=== PATIENT | female | born 1975 | race Caucasian/White ===

== ENCOUNTER → 2016-11-13 | Outpatient (CLI) | payer MEDICARE | END | disposition home or self-care (01) | LOC: LAB.O 15:34 | PROVIDERS: ATTEND Nurse Practitioner Family | DX: N30.00 Acute cystitis without hematuria (principal) ==

== ENCOUNTER 2016-12-15 23:07 | Emergency (ER) | payer MEDICARE ==
[2016-12-15 23:24] VITALS: BP 116/75; TEMP 96.7; O2SAT 99
[2016-12-15] MEDS ORDERED: SULFA/TRIMETH 800/160 (DS) TAB 1 EA TAB PO ONE (23:25)
--- NOTE | 2016-12-15 23:28 | ED.PDOC ---
History of Present Illness - General Chief Complaint: Laceration Stated Complaint: scraped rt heel Time Seen by Provider: 12/15/16 23:18 Source: patient Exam Limitations: no limitations - History of Present Illness Initial Comments: he patient is a 41-year-old female presenting to emergency room secondary to pain on the heel of her right foot. 2-3 days ago she stepped on something and sustained a 1.5 x 0.5 cm laceration to the lateral aspect of her right heel. She is a diabetic and does have diabetic neuropathy. Pain has been increasing. No other injuries. She reports fair blood sugar control. Severity: mild Improving Factors: nothing Worsening Factors: nothing Associated Symptoms: denies symptoms Allergies/Adverse Reactions: Allergies Vancomycin Allergy (Unverified 05/01/12 22:24) Home Medications: Ambulatory Orders Gabapentin 05/17/15 Glipizide 05/17/15 Depakote 12/15/16 Haldol 12/15/16 Invokana 12/15/16 Metformin HCl 12/15/16 Sulfa/Trimeth 800/160 (Ds) Tab [Bactrim DS Tab] 1 ea PO BID #6 tab 12/15/16 Zanaflex 12/15/16 Review of Systems - Review of Systems Constitutional: States: no symptoms reported EENTM: States: no symptoms reported Respiratory: States: no symptoms reported Cardiology: States: no symptoms reported Gastrointestinal/Abdominal: States: no symptoms reported Genitourinary: States: no symptoms reported Musculoskeletal: States: see HPI Skin: States: see HPI Neurological: States: no symptoms reported Endocrine: States: no symptoms reported Hematologic/Lymphatic: States: no symptoms reported All other Systems: No Change from Baseline Past Medical History (General) - Patient Medical History Hx Congestive Heart Failure: No Hx Hypertension: Yes Hx Diabetes: Yes - Vaccination History Hx Tetanus, Diphtheria Vaccination: - unsure Hx Influenza Vaccination: No Hx Pneumococcal Vaccination: No - Social History Hx Alcohol Use: Yes - Female History Patient is a Female of Child Bearing Age (10 -59 yrs old): No Patient : No Family Medical History - Family History Mother Family History: No Known Physical Exam - Physical Exam General Appearance: Alert, Comfortable, No apparent distress Eye Exam: bilateral normal Ears, Nose, Throat: hearing grossly normal Neck: non-tender, full range of motion Respiratory: no respiratory distress, no accessory muscle use Cardiovascular/Chest: normal peripheral pulses, no edema Peripheral Pulses: radial,right: 2+, radial,left: 2+, dorsalis pedis,right: 2+, dorsalis pedis,left: 2+, posterior tibialis,right: 2+, posterior tibialis,left: 2+ Rectal Exam: deferred Extremity: normal range of motion, no pedal edema, no calf tenderness, normal capillary refill Neurologic: tube roller II-XII nml as tested, alert, normal mood/affect, oriented x 3 Skin Exam: normal color - laceration as above. Comments: Vital Signs - 24 hr 12/15/16 23:22 Temperature 96.7 F L Pulse Rate [ 98 H Left] Respiratory 16 Rate Blood Pressure 116/75 [Right Arm] O2 Sat by Pulse 99 Oximetry Progress - Progress Progress: 12/15/16 23:27 the patient is a 41-year-old female that is diabetic with mild peripheral neuropathy presenting secondary to a laceration to her right heel. The laceration is fairly superficial. It was cleaned with alcohol. It was covered with antibiotic ointment and a Band-Aid. She can continue this treatment at home. The patient will also be put on 3 days of Bactrim for prophylactic purposes. ER warnings were given for any worsening. Departure - Departure Clinical Impression: Laceration of foot not toes Qualifiers: Encounter type: initial encounter Laterality: right Qualified Code(s): S91.311A - Laceration without foreign body, right foot, initial encounter Disposition: Discharge to Home or Self Care Condition: Fair Departure Forms: ED Discharge - Pt. Copy, Patient Portal Self Enrollment Instructions: DI for Laceration Repair -- Simple Diet: regular diet Activity: increase activity as tolerated Referrals: KENNA GONZALES IV, FNP [Primary Care Provider] - 1-2 Weeks Prescriptions: Sulfa/Trimeth 800/160 (Ds) Tab [Bactrim DS Tab] 1 ea PO BID #6 tab Home Medications: Ambulatory Orders Gabapentin 05/17/15 Glipizide 05/17/15 Depakote 12/15/16 Haldol 12/15/16 Invokana 12/15/16 Metformin HCl 12/15/16 Sulfa/Trimeth 800/160 (Ds) Tab [Bactrim DS Tab] 1 ea PO BID #6 tab 12/15/16 Zanaflex 12/15/16 Additional Instructions: the patient is a 41-year-old female that is diabetic with mild peripheral neuropathy presenting secondary to a laceration to her right heel. The laceration is fairly superficial. It was cleaned with alcohol. It was covered with antibiotic ointment and a Band-Aid. She can continue this treatment at home. The patient will also be put on 3 days of Bactrim for prophylactic purposes. ER warnings were given for any worsening.
[2016-12-15] MEDS ORDERED: NEOMYCIN-BACITRACIN-POLYMYXIN 0.9 GM UD TOP ONE (23:29)
== END 2016-12-15 23:39 | disposition home or self-care (01) ==
LOC: ER 23:07
DX: S91.311A Laceration without foreign body, right foot, initial encounter (principal); I10 Essential (primary) hypertension; E11.9 Type 2 diabetes mellitus without complications; Z88.3 Allergy status to other anti-infective agents; W22.8XXA Striking against or struck by other objects, initial encounter; Y92.9 Unspecified place or not applicable

== ENCOUNTER → 2017-01-01 | Outpatient (CLI) | payer MEDICARE | END | disposition home or self-care (01) | LOC: LAB.O 15:31 | PROVIDERS: ATTEND Psychiatry & Neurology Psychiatry | DX: F31.9 Bipolar disorder, unspecified (principal); Z79.899 Other long term (current) drug therapy ==

== ENCOUNTER 2017-07-31 13:28 | Emergency (ER) | payer MEDICARE ==
[2017-07-31 14:04] VITALS: TEMP 98.5
--- NOTE | 2017-07-31 14:34 | CT ---
EXAM DESCRIPTION: Head CLINICAL HISTORY: fall COMPARISON: None available TECHNIQUE: Noncontrast head CT was performed with routine protocol. FINDINGS: Normal anderson-white matter differentiation. Ventricles and sulci are normal for age. No high density hemorrhage, focal edema or shift of the midline. No sulcal effacement. Normal orbital contents. Basilar cisterns appear clear. Intact calvarium with no fracture or lytic lesion. Normal aeration of tympanic cavities and mastoid air cells. No fluid levels in the paranasal sinuses. Skull base appears intact. Symmetrical internal auditory canals. IMPRESSION: No acute intracranial pathologic process. This exam was performed according to our departmental dose-optimization program, which includes automated exposure control, adjustment of the mA and/or kV according to patient size and/or use of iterative reconstruction technique. Total DLP equals 752.48 mGycm. Electronically signed by: Anthony Monge MD 07/31/2017 2:32 PM CDT
--- NOTE | 2017-07-31 14:38 | CT ---
EXAM DESCRIPTION: Cervical Spine CLINICAL HISTORY: fall COMPARISON: None Available. TECHNIQUE: Cervical CT is performed with thin-section axial imaging. MPRs are created and reviewed as well. FINDINGS: Axial bone window images reveal intact ring of C1. No abnormal widening of the atlantodens interval. No fracture of the vertebral bodies or transverse processes or posterior elements. Lung apices appear clear. No cervical mass or adenopathy. Sagittal reformatted images show normal alignment of vertebral bodies and facets. No jumped facet or facet fracture. Normal craniocervical alignment. No prevertebral soft tissue swelling. No a avulsion of the spinous processes. Spondylosis: Status post C4-5 anterior cervical interbody fusion. The fused disc level, prominent bony ridge measures approximately 4 mm in AP dimension without significant spinal stenosis. No other spondylotic changes. Coronal reformatted images show normal atlantooccipital and atlantoaxial alignment. The base of the dens is intact as is the body of C2. Intact lateral masses. Minimal patchy fluid opacification of the inferior mastoid air cells. IMPRESSION: Negative for fracture or posttraumatic subluxation. This exam was performed according to our departmental dose-optimization program, which includes automated exposure control, adjustment of the mA and/or kV according to patient size and/or use of iterative reconstruction technique. Total DLP equals 453.32 mGycm. Electronically signed by: Anthony Monge MD 07/31/2017 2:35 PM CDT
[2017-07-31] MEDS ORDERED: KETOROLAC TROMETHAMINE INJ 60 MG/2 ML VIAL IM ONE (14:58)
[2017-07-31] MEDS ORDERED: PROMETHAZINE HCL INJ 25 MG/ML VIAL IM ONE (14:58)
--- NOTE | 2017-07-31 15:04 | ED.PDOC ---
History of Present Illness - General Chief Complaint: Neuro Symptoms/Deficits Stated Complaint: headache post fall Time Seen by Provider: 07/31/17 14:57 Source: patient Exam Limitations: no limitations - History of Present Illness Initial Comments: PT REPORTS SLIIPPING AND FALLING IN THE KITCHEN YESTERDAY, HITTING HER HEAD ON A WALL. PT BELIEVES THAT SHE LOST CONCIOUSNESS AND REPORTS SEVERE HEADACHE AND NAUSEA TODAY, UNRELIEVED BY BC POWDER THAT SHE TOOK THIS AM. Timing/Duration: constant Severity: severe Improving Factors: nothing Worsening Factors: nothing Associated Symptoms: nausea/vomiting Allergies/Adverse Reactions: Allergies Vancomycin Allergy (Unverified 05/01/12 22:24) Home Medications: Ambulatory Orders Gabapentin 05/17/15 Glipizide 05/17/15 Depakote 12/15/16 Haldol 12/15/16 Invokana 12/15/16 Metformin HCl 12/15/16 Sulfa/Trimeth 800/160 (Ds) Tab [Bactrim DS Tab] 1 ea PO BID #6 tab 12/15/16 Zanaflex 12/15/16 Itgjgggixfbxi-Eomz-Wxkytpnlvn [Fioricet] 1 - 2 ea PO Q6HR PRN #20 tab 07/31/17 Ibuprofen 800 mg PO Q8HR PRN #30 tab 07/31/17 Promethazine Tab [Phenergan Tablet] 25 mg PO Q6H PRN #15 tab 07/31/17 Review of Systems - Review of Systems Constitutional: Denies: chills, fever EENTM: Denies: ear pain, nose congestion, throat pain Respiratory: Denies: cough, short of breath Cardiology: Denies: chest pain, palpitations, syncope Gastrointestinal/Abdominal: States: nausea. Denies: diarrhea, vomiting Genitourinary: Denies: dysuria, frequency Musculoskeletal: States: see HPI, neck pain. Denies: joint pain, joint swelling , muscle pain Skin: Denies: dryness, lesions Neurological: States: see HPI, headache. Denies: paresthesia Endocrine: States: no symptoms reported Hematologic/Lymphatic: States: no symptoms reported Past Medical History (General) - Patient Medical History Hx Congestive Heart Failure: No Hx Hypertension: Yes Hx Diabetes: Yes Surgical History: Hysterectomy, other - Vaccination History Hx Tetanus, Diphtheria Vaccination: - unsure Hx Influenza Vaccination: No Hx Pneumococcal Vaccination: No - Social History Hx Alcohol Use: Yes - Female History Patient : No Family Medical History - Family History Mother Family History: No Known Physical Exam - Physical Exam General Appearance: Alert, Well Developed, Well Groomed, Well Hydrated, Other - APPEARS UNCOMFORTABLY Eye Exam: bilateral normal ENT Exam: normal ENT inspection, hearing grossly normal Neck: full range of motion, supple, tender lateral, tender midline 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 Copy, Patient Portal Self Enrollment Instructions: DI for Concussion Diet: resume usual diet Activity: increase activity as tolerated Referrals: CALVIN SHEPARD,DEANNA Raza [Primary Care Provider] - 1-2 Weeks Prescriptions: Ibknohvrxsspm-Qpal-Zlfsaldnrx [Fioricet] 1 - 2 ea PO Q6HR PRN #20 tab PRN Reason: Headache/Migraine Pain Ibuprofen 800 mg PO Q8HR PRN #30 tab PRN Reason: Pain Promethazine Tab [Phenergan Tablet] 25 mg PO Q6H PRN #15 tab PRN Reason: Nausea/Vomiting Home Medications: Ambulatory Orders Gabapentin 05/17/15 Glipizide 05/17/15 Depakote 12/15/16 Haldol 12/15/16 Invokana 12/15/16 Metformin HCl 12/15/16 Sulfa/Trimeth 800/160 (Ds) Tab [Bactrim DS Tab] 1 ea PO BID #6 tab 12/15/16 Zanaflex 12/15/16 Ztginyvyvygos-Uvel-Sgjriilpwh [Fioricet] 1 - 2 ea PO Q6HR PRN #20 tab 07/31/17 Ibuprofen 800 mg PO Q8HR PRN #30 tab 07/31/17 Promethazine Tab [Phenergan Tablet] 25 mg PO Q6H PRN #15 tab 07/31/17
[2017-07-31] MEDS ORDERED: ACETAMINOPHEN-CAFF-BUTALBITAL 1 EA TAB PO PRN (15:53)
[2017-07-31 16:28] VITALS: BP 137/74; O2SAT 100
== END 2017-07-31 16:28 | disposition home or self-care (01) ==
LOC: ER 13:28
DX: S16.1XXA Strain of muscle, fascia and tendon at neck level, initial encounter (principal); S06.0X9A Concussion with loss of consciousness of unspecified duration, initial encounter; R11.0 Nausea; I10 Essential (primary) hypertension; W01.198A Fall on same level from slipping, tripping and stumbling with subsequent striking against other object, initial encounter; Y92.000 Kitchen of unspecified non-institutional (private) residence as the place of occurrence of the external cause
CPT/HCPCS: 70450; 72125; J1885; J2550

== ENCOUNTER 2017-11-23 20:33 | Emergency (ER) | payer MEDICARE ==
[2017-11-23] MEDS ORDERED: PANTOPRAZOLE SODIUM IV 40 MG VIAL IV ONE (21:04)
[2017-11-23] MEDS ORDERED: METOCLOPRAMIDE HCL INJ 10 MG/2 ML VIAL IV ONE (21:04)
[2017-11-23] MEDS ORDERED: HALOPERIDOL LACTATE INJ 5 MG/ML VIAL IM ONE (21:04)
--- NOTE | 2017-11-23 21:07 | ED.PDOC ---
History of Present Illness - General Chief Complaint: GI Problem Stated Complaint: N/V/D Time Seen by Provider: 11/23/17 21:02 Information Source: patient Exam Limitations: no limitations - History of Present Illness Initial Comments: SHE STARTED TRULICITY SATURDAY AND SINCE THEN SHE HAS BEEN NAUSEATED AND VOMITING. ALSO C/O ABDOMINAL PAIN . SHE DENIES ANY DIARRHEA. SHE ALSO HAS A MIGRAINE HA7/10, [employer]. Abdominal Pain Onset Location: epigastric Pain Radiation: no radiation Quality: moderate Timing/Duration: days - FOUR DAYS AGO Improving Factors: nothing Worsening Factors: nothing Review of Systems - Review of Systems Constitutional: States: no symptoms reported EENTM: States: no symptoms reported Respiratory: States: no symptoms reported Cardiology: States: no symptoms reported Gastrointestinal/Abdominal: States: abdominal pain, vomiting Genitourinary: States: no symptoms reported Musculoskeletal: States: no symptoms reported Skin: States: no symptoms reported Neurological: States: no symptoms reported, headache Endocrine: States: no symptoms reported Hematologic/Lymphatic: States: no symptoms reported Past Medical History (General) - Patient Medical History Hx Seizures: No Hx Stroke: No Hx Dementia: No Hx Asthma: No Hx of COPD: No Hx Cardiac Disorders: No Hx Congestive Heart Failure: No Hx Pacemaker: No Hx Hypertension: Yes Hx Thyroid Disease: No Hx Diabetes: Yes Hx Gastroesophageal Reflux: No Hx Renal Disease: No Hx Cancer: No Hx of HIV: No Hx Hepatitis C: No Hx MRSA: No Surgical History: Hysterectomy - Vaccination History Hx Tetanus, Diphtheria Vaccination: Yes Hx Influenza Vaccination: No Hx Pneumococcal Vaccination: No - Social History Hx Alcohol Use: Yes - occasional - Female History Patient : No Family Medical History - Family History Mother Family History: No Known Physical Exam - Physical Exam General Appearance: Well Developed, Well Groomed, Well Hydrated, Well Nourished , Other - SHE IS IN MODERATESS Eyes, Ears, Nose, Throat Exam: PERRL/EOMI, pharynx normal Neck: non-tender, supple Respiratory: chest non-tender, lungs clear, normal breath sounds, no respiratory distress, no accessory muscle use Cardiovascular/Chest: normal peripheral pulses, regular rate, rhythm, no edema, no gallop, no JVD, no murmur Peripheral Pulses: No deficit Gastrointestinal/Abdominal: normal bowel sounds, soft, tenderness Rectal Exam: deferred Extremity: normal range of motion, non-tender Neurologic: oriented x 3 Skin Exam: normal color Progress - Progress Progress: 11/23/17 22:01 FEELS MUCH BETTER, LAB IS REPORTED. PROBABLY THIS VOMITING IS A SIDE EFFECT FROM TRULICITY. HER HEADACHE IS ALSO MUCH BETTER. 11/23/17 22:02 11/23/17 22:03 Departure - Departure Clinical Impression: Vomiting Qualifiers: Vomiting type: bilious vomiting Nausea presence: with nausea Qualified Code(s) : R11.14 - Bilious vomiting Time of Disposition: 22:04 Disposition: Discharge to Home or Self Care Condition: Good Departure Forms: ED Discharge - Pt. Copy, Patient Portal Self Enrollment Instructions: Nausea and Vomiting, Adult (DC) Referrals: CALVIN SHEPARD,DEANNA Raza [Primary Care Provider] - 1-2 Weeks Prescriptions: Metoclopramide Tab [Reglan Tab] 10 mg PO Q6HR #30 tab Home Medications: Ambulatory Orders Gabapentin 05/17/15 Glipizide 05/17/15 Depakote 12/15/16 Haldol 12/15/16 Invokana 12/15/16 Metformin HCl 12/15/16 Sulfa/Trimeth 800/160 (Ds) Tab [Bactrim DS Tab] 1 ea PO BID #6 tab 12/15/16 Zanaflex 12/15/16 Rdqqhvrwjykbd-Iigb-Qgnmwcnnvh [Fioricet] 1 - 2 ea PO Q6HR PRN #20 tab 07/31/17 Ibuprofen 800 mg PO Q8HR PRN #30 tab 07/31/17 Promethazine Tab [Phenergan Tablet] 25 mg PO Q6H PRN #15 tab 07/31/17 Metoclopramide Tab [Reglan Tab] 10 mg PO Q6HR #30 tab 11/23/17
[2017-11-23] MEDS ORDERED: diphenhydrAMINE HCL 50 MG/ML VIAL IV SCH (21:30)
[2017-11-25 17:46] VITALS: BP 99/65; TEMP 97.6; O2SAT 96
== END 2017-11-23 22:12 | disposition home or self-care (01) ==
LOC: ER 20:33
DX: R11.14 Bilious vomiting (principal); I10 Essential (primary) hypertension; E11.9 Type 2 diabetes mellitus without complications
CPT/HCPCS: 36415; 80053; 81001; 83690; 85025; J1200; J1630; J2765

== ENCOUNTER 2018-05-05 02:39 | Observation (INO) | payer MEDICARE ==
[2018-05-05] MEDS ORDERED: INSULIN, REG.(HUMAN) 100 U/ML VIAL IV ONE ×2 (02:48→04:15)
[2018-05-05] MEDS ORDERED: SODIUM CHLORIDE 0.9% 1000ML 1,000 ML IVS ONE ×2 (02:48→04:20)
--- NOTE | 2018-05-05 04:04 | RAD ---
CHEST 05/05/2018. CLINICAL HISTORY: Drowsiness. COMPARISON: 03/30/2016 TECHNIQUE: AP Chest. FINDINGS: Normal cardiac size. Cardiomediastinal silhouette appears normal. Pulmonary vascularity is normal. Lungs and pleural spaces are clear. Unremarkable soft tissues and bones. IMPRESSION: 1. Negative chest. Electronically signed by: Bia Rivera DO 05/05/2018 4:03 AM [employer]
[2018-05-05] MEDS ORDERED: MAGNESIUM SULFATE PREMIX 2GM 2 GM in PREMIX BAG 1 BAG IVPB ONE ×2 (04:15→11:55)
[2018-05-05] MEDS ORDERED: MAGNESIUM SULFATE PREMIX 2GM 50 ML IVPB ONE ×2 (04:29→12:07)
--- NOTE | 2018-05-05 06:33 | ED.PDOC ---
History of Present Illness - General Chief Complaint: Neuro Symptoms/Deficits Stated Complaint: altered mental status, since about 0200 Time Seen by Provider: 05/05/18 02:40 Source: patient Exam Limitations: no limitations - History of Present Illness Initial Comments: the patient is a 42-year-old female presenting to the emergency room secondary toa feeling of dizziness and disorientation and she got out of the shower tonight. The patient is a known noncompliant diabetic. She has not been checking her blood sugar and has not been not compliant with her diabetic diet in the least. Additionally the patient takes 5 sedating medications each night and additionally took some Benadryl tonight to help with cold symptoms. Blood sugar with EMS was 695. She has apparently a type II diabetic. Compliance is always in question even when she reports compliance. The patient is actually currently alert and oriented though she is little drowsy. No evidence of dist ress otherwise. Timing/Duration: unsure Severity: moderate Improving Factors: nothing Worsening Factors: nothing Associated Symptoms: malaise Allergies/Adverse Reactions: Allergies Cephalexin [From Keflex] Allergy (Verified 05/05/18 03:02) Lamotrigine [From Lamictal] Allergy (Verified 05/05/18 03:02) Vancomycin Allergy (Verified 05/05/18 03:02) Home Medications: Ambulatory Orders Gabapentin 05/17/15 Glipizide 05/17/15 Depakote 12/15/16 Haldol 12/15/16 Invokana 12/15/16 Metformin HCl 12/15/16 Sulfa/Trimeth 800/160 (Ds) Tab [Bactrim DS Tab] 1 ea PO BID #6 tab 12/15/16 Zanaflex 12/15/16 Mlsdiyjhmmgzh-Mrdr-Efhvssewxk [Fioricet] 1 - 2 ea PO Q6HR PRN #20 tab 07/31/17 Ibuprofen 800 mg PO Q8HR PRN #30 tab 07/31/17 Promethazine Tab [Phenergan Tablet] 25 mg PO Q6H PRN #15 tab 07/31/17 Metoclopramide Tab [Reglan Tab] 10 mg PO Q6HR #30 tab 11/23/17 Metoclopramide HCl [Reglan] 10 mg PO TID PRN 10 Days #30 tab 12/13/17 Review of Systems - Review of Systems Constitutional: States: malaise, weakness - generalized EENTM: States: nose congestion, throat pain Respiratory: States: cough Cardiology: States: no symptoms reported Gastrointestinal/Abdominal: States: abdominal pain - chronic Genitourinary: States: no symptoms reported Musculoskeletal: States: see HPI - generalized body aches Skin: States: no symptoms reported Neurological: States: no symptoms reported Endocrine: States: no symptoms reported All other Systems: No Change from Baseline Past Medical History (General) - Patient Medical History Hx Seizures: No Hx Stroke: No Hx Dementia: No Hx Asthma: No Hx of COPD: No Hx Cardiac Disorders: No Hx Congestive Heart Failure: No Hx Pacemaker: No Hx Hypertension: Yes Hx Thyroid Disease: No Hx Diabetes: Yes Hx Gastroesophageal Reflux: No Hx Renal Disease: No Hx Cancer: No Hx of HIV: No Hx Hepatitis C: No Hx MRSA: No Surgical History: noncontributory - Vaccination History Hx Tetanus, Diphtheria Vaccination: Yes Hx Influenza Vaccination: No Hx Pneumococcal Vaccination: No - Social History Hx Alcohol Use: Yes - occasional - Female History Patient : No Family Medical History - Family History Mother Family History: No Known Physical Exam - Physical Exam General Appearance: Other - the patient is pale and tired. She is easily aroused however. Eye Exam: bilateral normal Ears, Nose, Throat: hearing grossly normal, nasal congestion, pharyngeal erythema Neck: full range of motion, supple Respiratory: lungs clear, normal breath sounds, no respiratory distress, no accessory muscle use Cardiovascular/Chest: normal peripheral pulses, regular rate, rhythm, no edema Peripheral Pulses: radial,right: 2+, radial,left: 2+, dorsalis pedis,right: 2+, dorsalis pedis,left: 2+ Gastrointestinal/Abdominal: non tender, soft Rectal Exam: deferred Back Exam: no CVA tenderness, no vertebral tenderness Extremity: normal range of motion, non-tender, no pedal edema, normal capillary refill Neurologic: edi consultant II-XII nml as tested, oriented x 3, other - she is tired but easily aroused Skin Exam: normal color Comments: Vital Signs - 24 hr 05/05/18 05/05/18 02:42 04:42 Temperature 96.8 F L Pulse Rate [ 91 H 92 H monitor] Respiratory 20 16 Rate Blood Pressure 116/70 95/65 [Left Arm] O2 Sat by Pulse 95 Oximetry repeat systolic blood pressures on multiple checks have been 110's. Progress - Progress Progress: 05/05/18 06:36 the patient is a 42-year-old female presenting to the emergency room secondary to delirium that is most likely due to her extreme hyperglycemia but also contributed to by her multiple sedating medications. Sedatives have been held. The patient has received 2 L of IV fluid so far and a total of about 14 units of IV insulin. Sugars have come down approximately 300 points. The patient will be admitted for further slow hydration and correction of her hyperglycemia. Consideration could be given towards giving a dose of longer acting insulin after another blood sugar check in about an hour. She does likely have a viral upper respiratory tract infection. She has tested negative for flu here today. Monitor for clearing of mental status as blood sugars are corrected and sedating medications wear off. No evidence of any nuchal rigidity or definitive meningeal signs. Admitted for further care. - Results/Orders Results/Orders: 05/05/18 02:47 Telemetry .CONTINUOUS LACTIC ACID Stat 05/05/18 03:15 STREP A SCREEN CULTURE Stat GROUP A STREP SCREEN, RAPID Stat HCG,QUALITATIVE URINE Stat Laboratory Results - last 24 hr 05/05/18 05/05/18 05/05/18 02:30 02:30 02:48 WBC 8.3 RBC 3.96 L Hgb 13.2 Hct 39.4 MCV 99.5 H MCH 33.3 H MCHC 33.5 RDW 13.0 Plt Count 240 MPV 9.6 Absolute Neuts (auto) 5.50 Absolute Lymphs (auto) 2.30 Absolute Monos (auto) 0.40 Absolute Eos (auto) 0.00 Absolute Basos (auto) 0.00 Neutrophils % 66.6 Lymphocytes % 27.5 Monocytes % 4.9 Eosinophils % 0.5 L Basophils % 0.5 Sodium 133 L Potassium 4.2 Chloride 99 L Carbon Dioxide 23 Anion Gap 15.2 BUN 13 Creatinine 0.67 BUN/Creatinine Ratio 19.4 POC Glucose Random Glucose 625 H* Serum Osmolality 296.2 H Calcium 8.9 Magnesium 1.4 L Total Bilirubin 0.3 AST 21 ALT 21 Alkaline Phosphatase 95 Creatine Kinase 22 L CK-MB (CK-2) 0.8 CK-MB (CK-2) % Not Reportable Troponin I < 0.02 Serum Total Protein 5.8 L Albumin 3.1 L Globulin 2.7 Albumin/Globulin Ratio 1.1 Serum HCG, Qual Urine Color Urine Appearance Urine pH Ur Specific [place] Urine Protein Urine Glucose (UA) Urine Ketones Urine Blood Urine Nitrite Urine Bilirubin Urine Urobilinogen Ur Leukocyte Esterase Urine RBC Urine WBC Ur Epithelial Cells Urine Bacteria Valproic Acid 11.0 L Group A Strep Rapid 05/05/18 05/05/18 05/05/18 03:15 03:20 04:00 WBC RBC Hgb Hct MCV MCH MCHC RDW Plt Count MPV Absolute Neuts (auto) Absolute Lymphs (auto) Absolute Monos (auto) Absolute Eos (auto) Absolute Basos (auto) Neutrophils % Lymphocytes % Monocytes % Eosinophils % Basophils % Sodium Potassium Chloride Carbon Dioxide Anion Gap BUN Creatinine BUN/Creatinine Ratio POC Glucose > 400 H* Random Glucose Serum Osmolality Calcium Magnesium Total Bilirubin AST ALT Alkaline Phosphatase Creatine Kinase CK-MB (CK-2) CK-MB (CK-2) % Troponin I Serum Total Protein Albumin Globulin Albumin/Globulin Ratio Serum HCG, Qual Negative Urine Color Urine Appearance Urine pH Ur Specific [place] Urine Protein Urine Glucose (UA) Urine Ketones Urine Blood Urine Nitrite Urine Bilirubin Urine Urobilinogen Ur Leukocyte Esterase Urine RBC Urine WBC Ur Epithelial Cells Urine Bacteria Valproic Acid Group A Strep Rapid Negative 05/05/18 05/05/18 05/05/18 04:19 04:45 05:19 WBC RBC Hgb Hct MCV MCH MCHC RDW Plt Count MPV Absolute Neuts (auto) Absolute Lymphs (auto) Absolute Monos (auto) Absolute Eos (auto) Absolute Basos (auto) Neutrophils % Lymphocytes % Monocytes % Eosinophils % Basophils % Sodium Potassium Chloride Carbon Dioxide Anion Gap BUN Creatinine BUN/Creatinine Ratio POC Glucose > 400 H* 324 H Random Glucose Serum Osmolality Calcium Magnesium Total Bilirubin AST ALT Alkaline Phosphatase Creatine Kinase CK-MB (CK-2) CK-MB (CK-2) % Troponin I Serum Total Protein Albumin Globulin Albumin/Globulin Ratio Serum HCG, Qual Urine Color Yellow Urine Appearance Clear Urine pH 7.0 Ur Specific [place] 1.010 Urine Protein Negative Urine Glucose (UA) >=1000 H Urine Ketones 15 H Urine Blood Negative Urine Nitrite Negative Urine Bilirubin Negative Urine Urobilinogen 0.2 Ur Leukocyte Esterase Negative Urine RBC 1-3 Urine WBC 0 Ur Epithelial Cells 1-3 Urine Bacteria Rare Valproic Acid Group A Strep Rapid 05/05/18 05/05/18 05:45 06:10 WBC RBC Hgb Hct MCV MCH MCHC RDW Plt Count MPV Absolute Neuts (auto) Absolute Lymphs (auto) Absolute Monos (auto) Absolute Eos (auto) Absolute Basos (auto) Neutrophils % Lymphocytes % Monocytes % Eosinophils % Basophils % Sodium Potassium Chloride Carbon Dioxide Anion Gap BUN Creatinine BUN/Creatinine Ratio POC Glucose 397 H Random Glucose 407 H* Serum Osmolality Calcium Magnesium Total Bilirubin AST ALT Alkaline Phosphatase Creatine Kinase CK-MB (CK-2) CK-MB (CK-2) % Troponin I Serum Total Protein Albumin Globulin Albumin/Globulin Ratio Serum HCG, Qual Urine Color Urine Appearance Urine pH Ur Specific [place] Urine Protein Urine Glucose (UA) Urine Ketones Urine Blood Urine Nitrite Urine Bilirubin Urine Urobilinogen Ur Leukocyte Esterase Urine RBC Urine WBC Ur Epithelial Cells Urine Bacteria Valproic Acid Group A Strep Rapid chest x-ray showed no acute pathology. Departure - Departure Clinical Impression: Acute metabolic encephalopathy, Medical non-compliance Hyperglycemia due to type 2 diabetes mellitus Qualifiers: Diabetes mellitus terminal operator insulin use: without fpc use Qualified Code(s): E11.65 - Type 2 diabetes mellitus with hyperglycemia Disposition: Admit Patient Departure Forms: ED Discharge - Pt. Copy, Patient Portal Self Enrollment Referrals: CALVIN SHEPARD,DEANNA Raza [Primary Care Provider] - 1-2 Weeks Home Medications: Ambulatory Orders Gabapentin 05/17/15 Glipizide 05/17/15 Depakote 12/15/16 Haldol 12/15/16 Invokana 12/15/16 Metformin HCl 12/15/16 Sulfa/Trimeth 800/160 (Ds) Tab [Bactrim DS Tab] 1 ea PO BID #6 tab 12/15/16 Zanaflex 12/15/16 Qycwsidmkmnrv-Qlom-Tkeosvjsfp [Fioricet] 1 - 2 ea PO Q6HR PRN #20 tab 07/31/17 Ibuprofen 800 mg PO Q8HR PRN #30 tab 07/31/17 Promethazine Tab [Phenergan Tablet] 25 mg PO Q6H PRN #15 tab 07/31/17 Metoclopramide Tab [Reglan Tab] 10 mg PO Q6HR #30 tab 11/23/17 Metoclopramide HCl [Reglan] 10 mg PO TID PRN 10 Days #30 tab 12/13/17 Decision To Admit - Decistion To Admit Decision to Admit Reason: Medical Nature Decision to Admit Date: 05/05/18 Decision to Admit Time: 06:39
--- NOTE | 2018-05-05 08:45 | HP ---
SUPERVISING PHYSICIAN: Rashawn Catsro M.D. CHIEF COMPLAINT: Altered mental status. HISTORY OF PRESENT ILLNESS: Ms. Mohamud is a 42 year-old female patient that presented to the Emergency Room this morning secondary to the fact that she was feeling dizzy and disoriented when she got out of the shower early this morning. The patient is known to be a very noncompliant diabetic. She also takes 5 sedating medications each night and on top of that takes Benadryl now for cold symptoms. Blood sugars by EMS showed she had a 695 blood sugar. She presented to the Emergency Room drowsy but alert and oriented. She was showing no obvious distress. Laboratory studies initially showed that she had a white count of 8,300, hemoglobin 13.2, hematocrit 39.4, platelet count 240,000. Differential showed to be without a shift. Chemistries initially showed sodium 133 but glucose was 625, potassium 4.2, BUN 13, creatinine 0.67, magnesium 1.4, lactic acid was normal at 2. Liver functions showed normal limits. Urine HCG was negative. Troponin was less than 0.02. Urinalysis showed greater than 1,000 glucose, 15 of ketones, otherwise within normal limits. She had a valproic acid that was 11 and urine drug screen that showed positive for Benzodiazepines and urine shows negative Group A Strep. Vital signs showed that she was hemodynamically stable with temperature 96.8, pulse 71, blood pressure 116/70, respirations 20, satting 95% to 98% on room air. She was started on fluids in the E. R. as well as given 14 units of insulin and observed for several hours. As her mentation improved and her blood sugar was better controlled, Dr. Mosher, E. R. physician, requested the patient be placed in observation for further treatment of blood sugars and neurologic observation. The patient was placed in observation in stable condition. PAST MEDICAL HISTORY: 1. Diabetes mellitus type 2. 2. Depression. 3. Chronic back pain. PAST SURGICAL HISTORY: 1. Cervical spine surgery. 2. Hysterectomy. HOME MEDICATIONS: 1. Ambien 10 mg at bedtime. 2. Ozempic 2 mg subcue weekly. 3. Metformin 1,000 mg b.i.d. 4. Zanaflex 4 mg t.i.d. 5. Valacyclovir 1 gram t.i.d. as needed. 6. Januvia 100 mg daily. 7. Propranolol 120 mg at bedtime. 8. Gabapentin 600 mg t.i.d. 9. Complete allergy medicine Diphenhydramine 25 mg daily. 10. Depakote 500 mg b.i.d. 11. Xanax 1 mg every 8 hours as needed. 12. Reglan 5 mg b.i.d. ALLERGIES: CEPHALEXIN, LAMOTRIGINE AND VANCOMYCIN. FAMILY HISTORY: Mother and father are both healthy and alive. She has 2 sisters, both healthy. SOCIAL HISTORY: The patient has 2 children, one child has cerebral palsy, the other is healthy. She lives in [place] and is . 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 She denies smoking and only drinks on rare occasions. She denies any illicit drug use. REVIEW OF SYSTEMS: CONSTITUTIONAL: Positive for general malaise, weakness. HEENT: Positive for sore throat, nasal congestion. Negative for ear aches. RESPIRATORY: Positive for cough. Negative for shortness of breath, wheezing. CARDIOVASCULAR: Negative for chest pains, palpitations or syncopal episodes. GASTROINTESTINAL: Negative for nausea or vomiting, but she has chronic abdominal pain secondary to poorly controlled diabetes. No reported abdominal pains on admission. MUSCULOSKELETAL: Positive generalized body aches. NEUROLOGIC: Positive for drowsiness but no ataxia, seizure activity or focal or sensory motor deficits. PHYSICAL EXAMINATION: VITAL SIGNS: Temperature 96.8, pulse 91, blood pressure 116/70, respirations 20, satting 95% on nasal cannula at rest on 2 liters, up to 98% on room air. Admission weight is 85.5 kg. GENERAL: The patient does appear pale and tired. She is sleeping but easily aroused. She appears to be in no acute distress. HEENT: Tympanic membranes are clear bilaterally. Oropharynx is pink and moist with dry mucosal membranes. Posterior pharyngeal area was mildly erythematous. NECK: Full range of motion, supple, non-tender. No jugular venous distention. CHEST: Lungs are clear to auscultation bilaterally without any rhonchi, wheezing or rales. CARDIOVASCULAR: Regular rate and rhythm without appreciable murmurs, gallops, or rubs. ABDOMEN: Soft, non-tender. Positive bowel sounds. EXTREMITIES: Without any clubbing, cyanosis or edema. NEUROLOGIC: Cranial nerves II-XII are grossly intact. Facial features were symmetrical. Extraocular movements are within normal limits. There is no notable nystagmus. She is obviously tired but easily aroused and is alert and oriented times three. SKIN: Warm, pink and dry with no lesions or rashes noted. LABORATORY: CBC showed white count 8,300, hemoglobin 13.2, hematocrit 39.4, platelet count 240,000. Differential showed to be without a left shift. Chemistries initially on admission showed 133 sodium but initial glucose was 625 which corrects her sodium to 145. Potassium 4.2, BUN 13, creatinine 0.67, anion gap was normal at 15, serum osmolality 296, magnesium 1.4. Liver functions showed to be within normal limits. Beta HCG serum was negative and troponin was less than 0.02. Prior to admission and after insulin her blood sugars were showing to be better controlled and at time of admission blood sugar was 346. MICROBIOLOGY: Group Strep culture was pending. Influenza A and B by PCR was negative. Group rapid Strep was negative. RADIOLOGY: Chest x-ray showed negative chest per radiology interpretation. ASSESSMENT: 1. Encephalopathy secondary to poorly controlled diabetes with hyperosmolar hyperglycemic nonketotic event exacerbated by multiple sedative medications, including Benzodiazepines, Ambien, muscle relaxers, Gabapentin and Benadryl. 2. Moderate dehydration secondary to #1. 3. History of diabetes mellitus type 2 poorly controlled with a history of poor compliance with last reported hemoglobin A1c last month of 10.6. 4. Electrolyte imbalance to include hypomagnesemia and hypokalemia secondary to poorly controlled diabetes and acute hyperglycemic event. 5. History of depression. 6. History of chronic back pain. PLAN: The patient is going to be placed in observation for continuation of maintenance of her blood sugar with subcue insulin and long-acting insulin as well as she will be started on a diet and sliding scale with a.c. and h.s. per protocol. Will continue to provide fluids and adjust her electrolytes as needed based off frequent BMPs. Will anticipate her length of stay to be at least 1 to 2 days with probable discharge tomorrow. The only limiting factor is her slow mentation which is again probably due to the multiple medications she takes at night less than the elevated blood sugar. She is showing good response to treatment and her mentation is returning to baseline, but certainly will need close neurological monitoring at least for 12 to 24 hours. Until she can transition back to outpatient management will continue to monitor and treat as needed. #[id number] MTDD
[2018-05-05] MEDS ORDERED: ACETAMINOPHEN 325 MG TAB PO PRN (09:19)
[2018-05-05] MEDS ORDERED: SODIUM CHLORIDE 0.9% (FLUSH) 10 ML SYG IV PRN (09:19)
[2018-05-05] MEDS ORDERED: ONDANSETRON INJ 4 MG/2 ML VIAL IV PRN (09:19)
[2018-05-05] MEDS ORDERED: INSULIN, REG.(HUMAN) 250 UNITS in SODIUM CHL 0.9% 250ML (AVIVA) 247.5 ML IVPB SCH ×2 (09:30)
[2018-05-05] MEDS ORDERED: IV SET AND CAP CHANGE INJ INJ SCH (09:30)
[2018-05-05] MEDS ORDERED: GLUCAGON INJ 1 MG VIAL SUBCU PRN (10:17)
[2018-05-05] MEDS ORDERED: DEXTROSE 50% 25 GM/50 ML SYG IV PRN (10:17)
[2018-05-05] MEDS ORDERED: INSULIN DETEMIR 100 UNITS/ML PEN SUBCU ONE (10:19)
[2018-05-05] MEDS ORDERED: POTASSIUM CHLORIDE 20 MEQ TAB PO ONE (11:56)
[2018-05-05] MEDS: INSULIN LISPRO 100 UNITS/ML PEN SUBCU SCH ×3 (12:05→22:06)
[2018-05-05] MEDS ORDERED: ALPRAZolam 0.5 MG TAB PO PRN (12:53)
[2018-05-05] MEDS ORDERED: metFORMIN HCL 500 MG TAB PO SCH (12:55)
[2018-05-05] MEDS: KCL 20MEQ/0.45% NS 1,000 ML IVS PRN ×2 (13:18→19:44)
[2018-05-05] MEDS: DEPAKOTE 500 MG PO SCH ×2 (14:59→22:05)
[2018-05-05] MEDS: GABAPENTIN 600 MG PO SCH ×2 (15:00→22:05)
[2018-05-05] MEDS: metFORMIN XR 500 MG TAB.ER.24 PO SCH (20:30)
[2018-05-05] MEDS: METOCLOPRAMIDE HCL 5 MG TAB PO SCH (20:30)
[2018-05-05] MEDS ORDERED: ZOLPIDEM TARTRATE 10 MG TAB PO SCH (21:00)
[2018-05-05] MEDS ORDERED: PROPRANOLOL HCL 120 MG PO SCH (21:00)
[2018-05-06] MEDS: KCL 20MEQ/0.45% NS 1,000 ML IVS PRN (01:54)
[2018-05-06] MEDS: INSULIN LISPRO 100 UNITS/ML PEN SUBCU SCH (07:44)
[2018-05-06] MEDS: metFORMIN XR 500 MG TAB.ER.24 PO SCH (07:48)
[2018-05-06] MEDS: METOCLOPRAMIDE HCL 5 MG TAB PO SCH (08:54)
[2018-05-06] MEDS: GABAPENTIN 600 MG PO SCH (08:54)
[2018-05-06] MEDS: DEPAKOTE 500 MG PO SCH (08:55)
[2018-05-06] MEDS ORDERED: NON-FORMULARY MEDICATION 1 EA MIS (Sitagliptin Phosphate [Januvia] 100 MG) PO SCH (09:00)
[2018-05-06] MEDS ORDERED: diphenhydrAMINE HCL 25 MG CAP PO SCH (09:00)
[2018-05-06 10:06] VITALS: BP 157/88; TEMP 97.7; O2SAT 93
--- NOTE | 2018-05-06 20:29 | DS ---
SUPERVISING PHYSICIAN: Rashawn Castro M.D. DISCHARGE DIAGNOSIS: 1. Encephalopathy secondary to poorly controlled diabetes with hyperosmolar hyperglycemic nonketotic event exacerbated by multiple sedative medications, including Benzodiazepines, Ambien, muscle relaxers, Gabapentin and Benadryl. 2. Moderate dehydration secondary to #1. 3. History of diabetes mellitus type 2 poorly controlled with a history of poor compliance with last reported hemoglobin A1c last month of 10.6. 4. Electrolyte imbalance to include hypomagnesemia and hypokalemia secondary to poorly controlled diabetes and acute hyperglycemic event. 5. History of depression. 6. History of chronic back pain. HISTORY OF PRESENT ILLNESS: This is a 42 year-old female patient that presented to the Emergency Room due to feeling dizzy and disoriented on the morning of admission. She has a significant history of noncompliant diabetes. She also takes 5 sedating medications each night and also took some Benadryl the previous night for cold symptoms. Her blood sugars reported by EMS showed a 695 blood sugar. In the Emergency Room she was drowsy but oriented. She showed hemoglobin 13.2, hematocrit 39.9, platelet count 240,000. She had a normal differential. Chemistry showed sodium 133, glucose 625, potassium 4.2, BUN 13, creatinine 0.67, magnesium 1.4, lactic acid was normal at 2. Liver functions were normal limits. Urine HCG was negative. Troponin was less than 0.02. Urinalysis showed greater than 1,000 urine glucose, 15 of urine ketones, otherwise within normal limits. Her valproic acid was 11 and urine drug screen showed positive for Benzodiazepines. Her throat culture was negative for Group A Strep. Vital signs showed that she was hemodynamically stable with temperature 96.8, pulse 71, blood pressure 116/70, respiratory rate 20, satting 95% to 98% on room air. She was given fluids in the E. R. as well as given 14 units of insulin. She was observed for several hours. Her mentation improved and her blood sugar was better controlled. Dr. Mosher, E. R. physician, requested that the patient be placed in observation for treatment of blood sugars as well as neurologic observation. HOSPITAL COURSE: Overnight the patient's blood sugars were controlled by restarting her home medications, including her diabetic medication. She was also given sliding scale coverage for a.c. and h.s. blood sugar checks. She was also given fluids. Her electrolytes were replaced. This morning she was able to take a shower without any problems. Her is at the bedside and she is at her baseline mental status. Her labs this morning showed electrolytes within normal limits with blood sugar of 23. Calcium was slightly low at 8.2. She will be discharged home in stable condition. DISCHARGE PLAN: The patient will be discharged home in stable condition. She is to resume her previous activity and to resume a diabetic diet as well as followup with Mariel Houston NP, within 1 to 2 weeks for hospital discharge followup. We discussed at length diabetic control as well as being very careful with her sedative medications. She is to return to the hospital or followup with Mariel Houston for any other problems or complications. DISCHARGE MEDICATIONS: 1. Gabapentin. 2. Zanaflex. 3. Depakote. 4. Diphenhydramine. 5. Januvia. 6. Valacyclovir 7. Propranolol. 8. Xanax. 9. Metformin. 10. Ozempic. 11. Zolpidem. 12. Reglan. #[id number] [facility]
[2018-05-12] MEDS ORDERED: NON-FORMULARY MEDICATION 1 EA MIS (Semaglutide [Ozempic] 2 MG) SC SCH (09:00)
== END 2018-05-05 11:59 | disposition short-term general hospital (02) ==
LOC: ER 02:39 → MS 08:42 → UNDOADMOB 08:42 → INTOOBSV 08:42 → MS 08:43 → UNDODISOB 05-06 10:50
PROVIDERS: ADMIT Nurse Practitioner Family; ATTEND Nurse Practitioner Acute Care
DX: G93.49 Other encephalopathy (principal); E11.00 Type 2 diabetes mellitus with hyperosmolarity without nonketotic hyperglycemic-hyperosmolar coma (NKHHC); E11.65 Type 2 diabetes mellitus with hyperglycemia; E86.0 Dehydration; E87.6 Hypokalemia; E83.42 Hypomagnesemia; F32.9 Major depressive disorder, single episode, unspecified; G89.29 Other chronic pain; E83.51 Hypocalcemia; I10 Essential (primary) hypertension; Z91.11 Patient's noncompliance with dietary regimen; Z91.14 Patient's other noncompliance with medication regimen; Z79.84 Long term (current) use of oral hypoglycemic drugs; Z79.899 Other long term (current) drug therapy; Z88.1 Allergy status to other antibiotic agents; Z88.8 Allergy status to other drugs, medicaments and biological substances
CPT/HCPCS: 96361; 96366; 96367; 96365; 96375; 96376; 96372; J7030 ×2; J3475 ×2; J3480 ×2; J1815 ×2; 80048 ×2; 82553; 80053; 80307; 82948 ×9; 36415 ×6; 81001; 85025; 82550; 82947; 84703; 83735 ×3; 80164; 84484; 36416 ×6; 83605; 71045; 94760 ×3; 99285; G0378; 87502

== ENCOUNTER 2018-05-06 | Observation (INO) | payer MEDICARE | END 2018-05-06 10:50 | disposition home or self-care (01) | LOC: MS → UNDOADMOB 12:00 → MS 12:00 | PROVIDERS: ADMIT Nurse Practitioner Acute Care; ATTEND Nurse Practitioner Acute Care | DX: G93.49 Other encephalopathy (principal); E11.00 Type 2 diabetes mellitus with hyperosmolarity without nonketotic hyperglycemic-hyperosmolar coma (NKHHC); E11.65 Type 2 diabetes mellitus with hyperglycemia; E86.0 Dehydration; E87.6 Hypokalemia; E83.42 Hypomagnesemia; F32.9 Major depressive disorder, single episode, unspecified; G89.29 Other chronic pain; E83.51 Hypocalcemia; I10 Essential (primary) hypertension; Z91.11 Patient's noncompliance with dietary regimen; Z91.14 Patient's other noncompliance with medication regimen; Z79.84 Long term (current) use of oral hypoglycemic drugs; Z79.899 Other long term (current) drug therapy; Z88.1 Allergy status to other antibiotic agents; Z88.8 Allergy status to other drugs, medicaments and biological substances | CPT/HCPCS: 96366; 96372; J3480; 80048; 82948; 36415; 36416; 94760 ×3; G0378 ==

== ENCOUNTER 2018-08-19 19:58 | Emergency (ER) | payer MEDICARE ==
--- NOTE | 2018-08-19 20:45 | RAD ---
EXAM DESCRIPTION: Forearm,Right CLINICAL HISTORY: 42 years Female, caught in clothes dryer COMPARISON: None. FINDINGS: Right forearm 2 views No fracture or dislocation. Soft tissues are unremarkable. IMPRESSION: No acute abnormality. Electronically signed by: Cj Carr MD 08/19/2018 8:42 PM CDT
--- NOTE | 2018-08-19 21:43 | RAD ---
EXAM DESCRIPTION: Shoulder,Right 2 or More Views CLINICAL HISTORY: 42 years Female, pain COMPARISON: None. FINDINGS: No fracture or dislocation. Soft tissues are unremarkable. IMPRESSION: No acute abnormality. Electronically signed by: Cj Carr MD 08/19/2018 9:40 PM CDT
--- NOTE | 2018-08-19 21:43 | RAD ---
EXAM DESCRIPTION: Humerus,Right CLINICAL HISTORY: 42 years Female, pain COMPARISON: None. FINDINGS: Right humerus 2 views No fracture or dislocation. Soft tissues are unremarkable. IMPRESSION: No acute abnormality. Electronically signed by: Cj Carr MD 08/19/2018 9:40 PM CDT
--- NOTE | 2018-08-19 22:11 | ED.PDOC ---
History of Present Illness - General Chief Complaint: Upper Extremity Injury Stated Complaint: hurt arm in dryer Time Seen by Provider: 08/19/18 21:08 Source: patient Exam Limitations: no limitations - History of Present Illness Initial Comments: Kristina Mohamud 42 y/o female came to ER with dull right upper extremity pain after he tried to take out clothes on the clothesdryer and it wont stop running.No other mentioned injuries.Able to move right arm but hurts. Occurred: just prior to arrival Pain - Upper Extremity: moderate: Upper arm, right, Elbow, right, Forearm, right Method of Injury: other - see hpi Improving Factors: rest Worsening Factors: movement Associated Symptoms: see hpi Allergies/Adverse Reactions: Allergies Cephalexin [From Keflex] Allergy (Verified 05/05/18 03:02) Lamotrigine [From Lamictal] Allergy (Verified 05/05/18 03:02) Vancomycin Allergy (Verified 05/05/18 03:02) Home Medications: Ambulatory Orders Gabapentin 600 mg PO TID 05/17/15 Depakote 500 mg PO BID 12/15/16 Zanaflex 4 mg PO TID PRN 12/15/16 Alprazolam [Xanax] 1 mg PO Q8H PRN 05/05/18 Diphenhydramine HCl [Complete Allergy Medicine] 25 mg PO DAILY 05/05/18 Metformin HCl [Metformin HCl ER] 1,000 mg PO BID 05/05/18 Metoclopramide Tab [Reglan Tab] 5 mg PO BID 05/05/18 Propranolol HCl [Inderal LA] 120 mg PO BEDTIME 05/05/18 Semaglutide [Ozempic] 2 mg SC WKLY 05/05/18 Sitagliptin Phosphate [Januvia] 100 mg PO DAILY 05/05/18 Valacyclovir HCl 1 gm PO TID PRN 05/05/18 Zolpidem Tartrate 10 mg PO BEDTIME 05/05/18 Tramadol HCl 50 mg PO Q4HR #20 tab 08/19/18 Review of Systems - Review of Systems Musculoskeletal: States: see HPI All other Systems: Reviewed and Negative, No Change from Baseline Past Medical History (General) - Patient Medical History Hx Seizures: No Hx Stroke: No - TIA Hx Dementia: No Hx Asthma: No Hx of COPD: No Hx Cardiac Disorders: No Hx Congestive Heart Failure: No Hx Pacemaker: No Hx Hypertension: Yes Hx Thyroid Disease: No Hx Diabetes: Yes Hx Gastroesophageal Reflux: No Hx Renal Disease: No Hx Cancer: No Hx of HIV: No Hx Hepatitis C: No Hx MRSA: No Surgical History: other - neck,jaw,hysterectomy - Vaccination History Hx Tetanus, Diphtheria Vaccination: Yes Hx Influenza Vaccination: No Hx Pneumococcal Vaccination: No - Social History Hx Alcohol Use: Yes - occasional Hx Emotional Abuse: No - Female History Patient : No Family Medical History - Family History Mother Family History: No Known Hx Family Diabetes: Yes - dad Physical Exam - Physical Exam General Appearance: Alert, Comfortable, No apparent distress Eyes, Ears, Nose, Throat Exam: normal ENT inspection Neck: supple, normal inspection Cardiovascular/Respiratory: regular rate, rhythm, no M/R/G, normal peripheral pulses, no JVD, normal breath sounds Abdominal Exam: non-tender Back Exam: no vertebral tenderness Shoulder Exam: normal inspection, non-tender Elbow/Forearm Exam: normal inspection, no evidence of injury, bone tenderness - right UE, limited ROM - painful, soft tissue tenderness - right UE Wrist Exam: normal inspection, non-tender, no evidence of injury Hand Exam: normal inspection, non-tender Neuro/Tendon: normal sensation, normal motor functions, normal tendon functions Mental Status: alert, oriented x 3 Progress - Progress Progress: 08/19/18 22:13 Vital Signs - 8 hr 08/19/18 08/19/18 20:09 21:34 Temperature 96.3 F L Pulse Rate [ 97 H 84 Left Brachial] Respiratory 18 18 Rate Blood Pressure 137/92 123/87 [Left Arm] O2 Sat by Pulse 98 97 Oximetry - EKG/XRAY/CT Xray Comments: no acute fracture Right upper extremity X-ray Departure - Departure Clinical Impression: Pain of right upper extremity Contusion of right upper extremity Qualifiers: Encounter type: initial encounter Qualified Code(s): S40.021A - Contusion of right upper arm, initial encounter Time of Disposition: 22:16 Disposition: Discharge to Home or Self Care Condition: Fair Departure Forms: ED Discharge - Pt. Copy, Patient Portal Self Enrollment Instructions: Contusion (DC) Referrals: CALVIN SHEPARD,DEANNA Raza [Primary Care Provider] - 1-2 Weeks Prescriptions: Tramadol HCl 50 mg PO Q4HR #20 tab Home Medications: Ambulatory Orders Gabapentin 600 mg PO TID 05/17/15 Depakote 500 mg PO BID 12/15/16 Zanaflex 4 mg PO TID PRN 12/15/16 Alprazolam [Xanax] 1 mg PO Q8H PRN 05/05/18 Diphenhydramine HCl [Complete Allergy Medicine] 25 mg PO DAILY 05/05/18 Metformin HCl [Metformin HCl ER] 1,000 mg PO BID 05/05/18 Metoclopramide Tab [Reglan Tab] 5 mg PO BID 05/05/18 Propranolol HCl [Inderal LA] 120 mg PO BEDTIME 05/05/18 Semaglutide [Ozempic] 2 mg SC WKLY 05/05/18 Sitagliptin Phosphate [Januvia] 100 mg PO DAILY 05/05/18 Valacyclovir HCl 1 gm PO TID PRN 05/05/18 Zolpidem Tartrate 10 mg PO BEDTIME 05/05/18 Tramadol HCl 50 mg PO Q4HR #20 tab 08/19/18 Additional Instructions: Ice pack to affected area 15 minutes 3 x a day during waking hours only until better;Follow up with primary Md 25 August 2018 for recheck
[2018-08-19] MEDS ORDERED: traMADol HCL 50 MG (ER DISP) # 6 TABS PO ONE (22:19)
[2018-08-19 22:38] VITALS: BP 127/79; TEMP 97.8; O2SAT 98
== END 2018-08-19 22:43 | disposition home or self-care (01) ==
LOC: ER 19:58
DX: S40.021A Contusion of right upper arm, initial encounter (principal); E11.9 Type 2 diabetes mellitus without complications; I10 Essential (primary) hypertension; W23.0XXA Caught, crushed, jammed, or pinched between moving objects, initial encounter; Z86.73 Personal history of transient ischemic attack (TIA), and cerebral infarction without residual deficits; Z79.84 Long term (current) use of oral hypoglycemic drugs; Z79.899 Other long term (current) drug therapy; Z88.1 Allergy status to other antibiotic agents; Z88.8 Allergy status to other drugs, medicaments and biological substances; Y92.9 Unspecified place or not applicable

== ENCOUNTER → 2019-02-27 | Outpatient (CLI) | payer MEDICARE, MEDICAID ==
--- NOTE | 2019-03-01 20:02 | MRI ---
EXAM DESCRIPTION: Cervical Spine: MRI. CLINICAL HISTORY: 43 years Female NECK PAIN COMPARISON: Cervical spine MRI without contrast 06/01/2015. TECHNIQUE: Multiplanar, high-field MRI, multiple sequences, non-contrast Cervical spine. FINDINGS: Magnetic susceptibility artifact from ACDF construct at C4-C5. Minimal narrowing of the canal posterior to the disc space. Fusion hardware customary position and near-anatomic alignment stable since the prior study. Bilateral neural foramina are patent. C5-C6: Minimal disc space loss. Posterior disc midline 4 mm protrusion impressing on the ventral cord with minimal extrusion inferior to the disc space. This has progressed since the prior study. Moderate central canal narrowing. Bilateral uncinate spurs. Bilateral neural foraminal mild narrowing. C6-C7: minimal disc desiccation and tiny posterior bulge. Mild canal narrowing. Facets are negative. Bilateral neural foramina are patent. Normal signal in the remaining discs with no bulging. Disc spaces preserved. Canal and neural foramina are patent. Facet joints are negative. Spinal alignment C3- C5 kyphosis.. No cord compression or cord edema. Atlantoaxial joint minimal hypertrophic.. Base of the cerebellar tonsils is above the foramen magnum. Paravertebral soft tissues negative.. Vertebral bodies are not compressed at any level. Normal marrow signal in the remaining vertebral bodies and the posterior elements. IMPRESSION: 1. Posterior midline disc protrusion at C5-C6 impressing on the ventral cord with minimal inferior extrusion. This has progressed since the prior study. No canal or neural foraminal stenosis. 2. ACDF C4-C5 with no complications. Canal and neural foramina are patent. Stable since the prior study. Electronically signed by: Duke Hernández MD 03/01/2019 8:00 PM CDT
== END ==
LOC: MRI 10:17
PROVIDERS: ATTEND Psychiatry & Neurology Neurology
DX: M50.222 Other cervical disc displacement at C5-C6 level (principal); Z98.1 Arthrodesis status

== ENCOUNTER → 2019-10-30 | Outpatient (CLI) | payer MEDICARE, MEDICAID | LOC: YCFC.O 16:29 | PROVIDERS: ATTEND Nurse Practitioner | DX: Z20.828 Contact with and (suspected) exposure to other viral communicable diseases (principal) ==

== ENCOUNTER → 2020-03-30 | Outpatient (CLI) | payer MEDICARE, MEDICAID ==
--- NOTE | 2020-03-31 06:36 | RAD ---
EXAM DESCRIPTION: Wrist,Left 3 Views CLINICAL HISTORY: 44 years, Female, PAIN IN LEFT WRIST COMPARISON: None FINDINGS: Left wrist 3 x-ray views is negative for fracture or dislocation. Carpal relationships are well-maintained. Distal radius and ulna appear intact. Normal metacarpals. No significant arthritic changes are observed. IMPRESSION: Negative for fracture or dislocation. Electronically signed by: Anthony Monge MD 03/31/2020 6:34 AM [facility]
== END ==
LOC: RAD 11:02
PROVIDERS: ATTEND Family Medicine
DX: M25.532 Pain in left wrist (principal); R22.32 Localized swelling, mass and lump, left upper limb

== ENCOUNTER → 2020-04-07 | Outpatient (CLI) | payer MEDICARE, MEDICAID ==
--- NOTE | 2020-04-07 21:10 | US ---
EXAM DESCRIPTION: Soft Tissue,Extremity: ULTRASOUND. CLINICAL HISTORY: 44 years Female LEFT WRIST PAIN AND MASS. Left wrist carpal tunnel surgery February 02. COMPARISON: None Available. TECHNIQUE: Transcutaneous scanning: Vásquez-scale and Doppler modes. FINDINGS: Scanning of the region of interest left wrist. Uniform appearance of the subcutaneous adipose tissue. No dominant solid mass, no distinct cysts, no abnormal vascularity, no fluid collection, and no large calcifications. IMPRESSION: No sonographic abnormality of the subcutaneous adipose tissue in the region of interest left wrist to correlate with left wrist pain. Electronically signed by: Duke Hernández MD 04/07/2020 9:08 PM [facility]
== END ==
LOC: US 13:53
PROVIDERS: ATTEND Family Medicine
DX: M25.532 Pain in left wrist (principal); R22.32 Localized swelling, mass and lump, left upper limb